=== PATIENT | male | born 1985 | race African-American/Black ===

== ENCOUNTER 2017-08-12 08:33 | Emergency (ER) | payer SELFPAY ==
[~2017-08-12] VITALS: Ht 165.1 cm; Wt 91.0 kg
[2017-08-12 08:38] VITALS: BP 117/59; PULSE 87; RESP 20; TEMP 98.4; O2SAT 97
[2017-08-12] MEDS ORDERED: AZITHROMYCIN PWD FOR SUSP 1 GM PACKET PO ONE (09:15)
[2017-08-12] MEDS ORDERED: LIDOCAINE HCL 1% 50 ML VIAL XX ONE (09:15)
[2017-08-12] MEDS ORDERED: SODIUM CHLORIDE 0.9% FLUSH 10 ML FLUSH IVF PRN ×2 (09:15)
[2017-08-12] MEDS ORDERED: LIDOCAINE HCL 1% PF 30 ML VIAL ONE (09:22)
--- NOTE | 2017-08-12 09:22 | PD ---
HPI Chief Complaint: Complaint Time Seen by Provider: 09:00 Travel History International Travel<30 days: No Contact w/Intl Traveler<30days: No Traveled to known affect area: No History of Present Illness HPI 32-year-old -[place] male presents emergency department with 2 day history of "tingling" when urinating. Patient states it actually burned this morning when he gave us a urine sample here. Patient states he is monogamous with his girlfriend. He denies fever, chills, nausea, abdominal pain, or CVA tenderness. Patient noted some discharge with the urination this morning. He denies testicular pain. Burning is rated as a 7 out of 10. He denies history of this in the past. He has no known drug allergies. [facility] Past Medical History Medical History: Denies Significant Hx Past Surgical History Surgical History: No Previous Surgery Social History Alcohol Use: No Tobacco Use: No Substance Use: Yes (marijuana) Allergies-Medications (Allergen,Severity, Reaction): Coded Allergies: No Known Allergies (Unverified , 08/12/17) Reported Meds & Prescriptions Reported Meds & Active Scripts Active No Active Prescriptions or Reported Medications Review of Systems Except as stated in HPI: all other systems reviewed are Neg General / Constitutional: No: Fever Eyes: No: Visual changes HENT: No: Headaches Cardiovascular: No: Chest Pain or Discomfort Respiratory: No: Shortness of Breath Gastrointestinal: No: Abdominal Pain Genitourinary: Positive: Dysuria, Discharge, No: Pelvic Pain, Flank Pain Musculoskeletal: No: Pain Skin: No Rash Neurologic: No: Weakness Psychiatric: No: Depression Endocrine: No: Polydipsia Hematologic/Lymphatic: No: Easy Bruising Physical Exam Narrative GENERAL: Patient appears in no acute distress SKIN: Warm and dry. Normal color. Normal turgor. No rash. HEAD: Atraumatic. Normocephalic. EYES: Pupils equal and round. No scleral icterus. No injection or drainage. ENT: No nasal bleeding or discharge. Mucous membranes pink and moist. NECK: Trachea midline. No JVD. CARDIOVASCULAR: Regular rate and rhythm. RESPIRATORY: No accessory muscle use. Clear to auscultation. Breath sounds equal bilaterally. GASTROINTESTINAL: Abdomen soft, non-tender, nondistended. Hepatic and splenic margins not palpable. No CVA tenderness. MUSCULOSKELETAL: Extremities without clubbing, cyanosis, or edema. No obvious deformities. NEUROLOGICAL: Awake and alert. No obvious cranial nerve deficits. Motor grossly within normal limits. Five out of 5 muscle strength in the arms and legs. Normal speech. PSYCHIATRIC: Appropriate mood and affect; insight and judgment normal. Data Data Last Documented VS Vital Signs Date Time Temp Pulse Resp B/P (MAP) Pulse Ox O2 Delivery O2 Flow Rate FiO2 08/12/17 08:38 98.4 87 20 117/59 (78) 97 Orders Orders Urinalysis - C+S If Indicated (08/12/17 09:02) Gc And Chlamydia Pcr (08/12/17 09:02) Sodium Chloride 0.9% Flush (Ns Flush) (08/12/17 09:15) Azithromycin Powd Pack (Zithromax Powd P (08/12/17 09:15) Ceftriaxone Inj (Rocephin Inj) (08/12/17 09:15) Sodium Chloride 0.9% Flush (Ns Flush) (08/12/17 09:15) Lidocaine 1% Inj (50 Ml) (Xylocaine 1% I (08/12/17 09:15) Lidocaine Pf 1% Inj (Xylocaine-Mpf 1% In (08/12/17 09:22) Labs Laboratory Tests Test 08/12/17 09:15 Urine Color YELLOW Urine Turbidity CLEAR Urine pH 6.0 Urine Specific [place] 1.036 Urine Protein TRACE mg/dL Urine Glucose (UA) NEG mg/dL Urine Ketones TRACE mg/dL Urine Occult Blood NEG Urine Nitrite NEG Urine Bilirubin NEG Urine Urobilinogen 4.0 MG/DL Urine Leukocyte Esterase SMALL Urine RBC 1 /hpf Urine WBC 8 /hpf Urine Squamous Epithelial Cells 1 /hpf Urine Bacteria OCC /hpf Urine Hyaline Casts 2 /lpf Urine Mucus MANY /lpf Microscopic Urinalysis Comment CULT NOT INDICATED MDM Medical Decision Making Medical Screen Exam Complete: Yes Emergency Medical Condition: Yes Differential Diagnosis Dysuria. Gonorrhea. Trichomonas. Chlamydia. Narrative Course Patient is medically stable at time of exam. GC and Chlamydia urinalysis is ordered Patient is given 1000 mg of Rocephin IM. Patient is given 1000 mg azithromycin p.o. Urinalysis is unremarkable, and not cultured Recommend patient follow-up with either the health department or [facility]. GC and Chlamydia is still pending. Diagnosis Primary Impression: Dysuria Patient Instructions: Dysuria (ED), General Instructions Additional Instructions: GC and Chlamydia urinalysis is ordered Patient is given 1000 mg of Rocephin IM. Patient is given 1000 mg azithromycin p.o. Urinalysis is unremarkable, and not cultured Recommend patient follow-up with either the health department or [facility]. GC and Chlamydia is still pending. Med/Other Pt SpecificInfo: No Meds Exist/No RX given Scripts No Active Prescriptions or Reported Meds Disposition: 01 DISCHARGE HOME Condition: Stable Christiano Torres Aug 12, 2017 09:22
[2017-08-12 09:58] LABS: BACTERIA, URINE OCC /hpf; BILIRUBIN, URINE NEG (NEG); BLOOD, URINE NEG (NEG); GLUCOSE,URINE NEG (NEG); HYALINE CAST, URINE 2 /lpf (RARE); KETONE, URINE TRACE mg/dL (NEG); MUCUS URINE MANY /lpf (OCC); NITRITE,URINE NEG (NEG); SQUAMOUS EPITHELIAL CELL URINE 1 /hpf (0-5); URINE COLOR YELLOW (YELLW/STRAW); URINE LEUKOCYTE ESTERASE SMALL (NEG)
== END 2017-08-12 10:34 | disposition home or self-care (01) ==
LOC: NEPD 08:33
DX: R30.0 Dysuria (principal); F12.90 Cannabis use, unspecified, uncomplicated
CPT/HCPCS: 81001; 87491; 87591; 96372; 99283; J0696